=== PATIENT | male | born 1945 | race Caucasian/White ===

== ENCOUNTER 2021-01-25 19:00 | Outpatient (CLI) | payer MEDICARE, BC | END 2021-01-25 19:01 | disposition home or self-care (01) | LOC: SLEEPLAB 19:00 | PROVIDERS: ATTEND Internal Medicine Pulmonary Disease | DX: G47.33 Obstructive sleep apnea (adult) (pediatric) (principal); E11.9 Type 2 diabetes mellitus without complications; G47.61 Periodic limb movement disorder | CPT/HCPCS: 95811 ==

== ENCOUNTER 2021-02-21 10:03 | Outpatient (CLI) | payer BC, MEDICARE | END 2021-02-21 10:04 | disposition home or self-care (01) | LOC: DTY/OP 10:03 | PROVIDERS: ATTEND Family Medicine Sports Medicine | DX: E11.9 Type 2 diabetes mellitus without complications (principal) | CPT/HCPCS: 97802 ==

== ENCOUNTER 2021-11-01 10:56 | Outpatient (CLI) | payer MEDICARE, BC | END 2021-11-01 10:57 | disposition home or self-care (01) | LOC: RAD 10:56 | PROVIDERS: ATTEND Internal Medicine Critical Care Medicine | DX: R06.00 Dyspnea, unspecified (principal); J44.9 Chronic obstructive pulmonary disease, unspecified | CPT/HCPCS: 71046 ==

== ENCOUNTER 2021-11-14 02:16 | Inpatient (IN) | payer OTHER, MEDICARE, BC ==
[2021-11-14] MEDS ORDERED: Vancomycin 1 GM/200 ML BAG ONE (02:47)
[2021-11-14 03:09] LABS: Hemoglobin 15.8 g/dL (14.0-18.0); Mean Corpuscular HGB CONC 34.8 g/dL (32.0-36.0); Platelet Count 186 thou/uL (130-400); Red Blood Cell (RBC) Count 4.79 mill/uL (4.70-6.10); White Blood Cell (WBC) Count 23.1 thou/uL (4.8-10.8)
[2021-11-14 03:17] LABS: Acetaminophen Less than 10.0 mcg/mL (10.0-30.0); Alcohol Less than 10 mg/dL (Less than 10); Salicylate Less than 8.0 mg/dL (15.0-30.0)
[2021-11-14 03:21] LABS: Chloride 95 mmol/L (98-107); Potassium 4.2 mmol/L (3.5-5.1); Sodium 132 mmol/L (136-145)
[2021-11-14 03:22] LABS: Calcium 9.1 mg/dL (7.8-10.44); Glucose 161 mg/dL (83-110)
[2021-11-14 03:23] LABS: Globulin 2.6 g/dL (2.4-3.5); Protein, Total 6.6 g/dL (5.8-8.1)
[2021-11-14 03:24] LABS: Actual Bicarbonate (HCO3v) 25 mEq/L (22-28); Analyzer IN Cardio ER; Base Excess 1.8 mEq/L (-2.0 to +3.0); Calcium, Ionized (venous) 0.95 mmol/L (1.16-1.32); Chloride (VBG) 96 mmol/L (98-106); Hemoglobin (Hb) 16.2 g/dL (12.6-17.4); Potassium (VBG) 3.83 mmol/L (3.70-5.30); Sodium 129.6 mmol/L (133-146); pH (venous) 7.47 (7.32-7.43)
[2021-11-14 03:24] LABS: Bilirubin, Total 1.4 mg/dL (0.2-1.2); Carbon Dioxide 24 mmol/L (23-31)
[2021-11-14 03:25] LABS: Alkaline Phosphatase 66 U/L (40-110)
[2021-11-14 03:26] LABS: Calc. Creatinine Clearance 0 mL/min (70-130)
[2021-11-14 03:27] LABS: BUN (Urea Nitrogen) 14 mg/dL (8.4-25.7)
[2021-11-14 03:28] LABS: ALT (SGPT) 21 U/L (8-55); AST (SGOT) 19 U/L (5-34); Lipase 38 U/L (8-78)
[2021-11-14 03:32] LABS: Anion Gap 17 mmol/L (10-20)
[2021-11-14 03:36] LABS: Band 17 % (5-11); Lymphocytes 8 % (21-51); MDiff Complete? YES; Monocytes 5 % (0-10); Neutrophil 69 % (42-75); Platelet Morphology Comment Appears Adequate; RBC Morphology Normal; Reactive Lymphocytes 1 % (0-10)
[2021-11-14 03:56] LABS: SARS-CoV-2 NAA Rapid Test Not Detected (NotDetected)
[2021-11-14] MEDS ORDERED: Acetaminophen 325 MG TAB PO PRN (04:15)
[2021-11-14] MEDS ORDERED: Ondansetron PF 4 MG/2 ML Vial IVP PRN ×2 (04:15→04:34)
[2021-11-14] MEDS ORDERED: Ondansetron ODT 4 MG TAB SL PRN (04:15)
[2021-11-14 04:34] LABS: Bacteria/HPF None Seen HPF (None Seen); Bilirubin Negative (Negative); Blood, Urine 1+ (Negative); Clarity Clear (Clear); Glucose, Urine (Dipstick) Normal (Negative); Ketone, Urine Negative (Negative); Leukocyte Negative Leu/uL (Negative); Nitrite Negative (Negative); Protein, Urine (Dipstick) Negative (Neg-Trace); Specific Gravity, Urine 1.017 (1.002-1.036); Squamous Epithelial 0-3 HPF (0-3); Urobilinogen Normal mg/dL (Less than 2); WBC/HPF 0-3 HPF (0-3); pH, Urine 7.5 (5.0-9.0)
[2021-11-14] MEDS ORDERED: Dextrose 5% in Water 1,000 ML IV PRN (04:34)
[2021-11-14] MEDS ORDERED: Ondansetron ODT 4 MG TAB PO PRN (04:34)
[2021-11-14] MEDS ORDERED: Dextrose 50% Abboject 50 ML SYRINGE SLOW IVP PRN (04:34)
[2021-11-14] MEDS ORDERED: hydrALAZINE 20 MG/ML VIAL SLOW IVP PRN (04:34)
[2021-11-14] MEDS ORDERED: HumaLOG 300 UNITS/3 ML VIAL SC PRN (04:34)
[2021-11-14 04:39] LABS: Amphetamine Not Detected (NotDetected); Barbiturates Screen Not Detected (NotDetected); Benzodiazepine Screen Not Detected (NotDetected); Cocaine Metabolite Screen Not Detected (NotDetected); Methadone Not Detected (NotDetected); Methamphetamine Not Detected (NotDetected); Opiate Screen Not Detected (NotDetected); Oxycodone Screen Not Detected (NotDetected); Phencyclidine (PCP) Not Detected (NotDetected); THC/Cannabinoid Screen Not Detected (NotDetected); Tricyclic Screen Not Detected (NotDetected)
[2021-11-14 05:37] LABS: Lactic Acid 1.7 mmol/L (0.5-2.2)
[2021-11-14] MEDS: Acetaminophen 500 MG TAB PO PRN ×2 (06:05→12:40)
[2021-11-14] MEDS: Sodium Chloride 0.9% 1,000 ML IV SCH ×3 (06:05→21:13)
[2021-11-14] MEDS: Clindamycin/D5W 900 MG in Premix Bag 1 BAG IVPB SCH ×3 (06:05→21:13)
[2021-11-14] MEDS: Ketorolac Tromethamine 30 MG/ML VIAL IVP SCH ×3 (06:07→17:24)
[2021-11-14] MEDS ORDERED: Vancomycin HCl 1 GM in Sodium Chloride 0.9% 250 ML 300 ML IVPB SCH (09:00)
[2021-11-14] MEDS: Famotidine 20 MG TAB PO SCH ×2 (09:42→21:14)
[2021-11-14] MEDS: Enoxaparin Sodium 40 MG/0.4 ML SYRINGE SC SCH (09:42)
[2021-11-14] MEDS: Vancomycin 1.5 GRAM/300 ML BAG 1.5 GM in Premix Bag 1 BAG IVPB SCH ×2 (10:47→23:26)
[2021-11-14] MEDS: HumaLOG 300 UNITS/3 ML VIAL SC PRN (10:49)
[2021-11-14] MEDS ORDERED: Electrolyte Replacement Protocol 1 EACH FS PRN (11:15)
[2021-11-14 11:58] LABS: Magnesium 1.6 mg/dL (1.6-2.6)
[2021-11-14] MEDS ORDERED: Magnesium Sulfate 4 GM in Sodium Chloride 0.9% 250 ML 250 ML IVPB SCH (12:00)
[2021-11-14] MEDS ORDERED: Magnesium Sulfate In Water 4 GM in Premix Bag 1 BAG IVPB SCH (12:30)
[2021-11-14] MEDS ORDERED: Polyethylene Glycol 3350 17 GM Packet PO PRN (17:52)
[2021-11-14] MEDS: Saccharomyces boulardii 250 MG CAP PO SCH (21:14)
[2021-11-14] MEDS: Atorvastatin Calcium 40 MG TAB PO SCH (21:14)
[2021-11-15] MEDS: Sodium Chloride 0.9% 1,000 ML IV SCH ×3 (03:37→20:42)
[2021-11-15 04:32] LABS: #Eosinphils 0.5 thou/uL (0.0-0.7); #Lymphocytes 0.6 thou/uL (1.20-3.40); #Monocytes 0.7 thou/uL (0.11-0.59); %Basophils 0.2 % (0.0-1.0); %Eosinophils 2.4 % (0.0-10.0); %Monocytes 3.7 % (0.0-10.0); %Neutrophils 90.6 % (42.0-75.0); Hemoglobin 13.4 g/dL (14.0-18.0); Mean Corpuscular Hemoglobin 32.7 pg (27.0-31.0); Mean Corpuscular Volume 96.2 fL (78.0-98.0); Mean Platelet Volume 8.7 fL (7.4-10.4); Platelet Count 151 thou/uL (130-400); Red Blood Cell (RBC) Count 4.11 mill/uL (4.70-6.10); White Blood Cell (WBC) Count 18.7 thou/uL (4.8-10.8)
[2021-11-15 04:52] LABS: ALT (SGPT) 16 U/L (8-55); AST (SGOT) 17 U/L (5-34); Albumin 2.8 g/dL (3.4-4.8); Alkaline Phosphatase 62 U/L (40-110); Anion Gap 10 mmol/L (10-20); BUN (Urea Nitrogen) 19 mg/dL (8.4-25.7); Bilirubin, Total 1.1 mg/dL (0.2-1.2); Calc. Creatinine Clearance 119 mL/min (70-130); Calcium 7.9 mg/dL (7.8-10.44); Carbon Dioxide 25 mmol/L (23-31); Chloride 101 mmol/L (98-107); Globulin 2.2 g/dL (2.4-3.5); Glucose 131 mg/dL (83-110); Magnesium 2.2 mg/dL (1.6-2.6); Sodium 132 mmol/L (136-145)
[2021-11-15] MEDS: Clindamycin/D5W 900 MG in Premix Bag 1 BAG IVPB SCH ×3 (05:34→20:42)
[2021-11-15] MEDS: Enoxaparin Sodium 40 MG/0.4 ML SYRINGE SC SCH (10:20)
[2021-11-15] MEDS: Metoprolol Tartrate 25 MG TAB PO SCH ×2 (10:20→20:42)
[2021-11-15] MEDS: Aspirin 81 mg Enteric Coated Tablet PO SCH (10:20)
[2021-11-15] MEDS: Famotidine 20 MG TAB PO SCH ×2 (10:20→20:42)
[2021-11-15] MEDS: Montelukast Sodium 10 mg Tablet PO SCH (10:21)
[2021-11-15] MEDS: Vancomycin 1.5 GRAM/300 ML BAG 1.5 GM in Premix Bag 1 BAG IVPB SCH (13:38)
[2021-11-15] MEDS: Atorvastatin Calcium 40 MG TAB PO SCH (20:42)
[2021-11-15] MEDS: Saccharomyces boulardii 250 MG CAP PO SCH (20:42)
[2021-11-15] MEDS: Tamsulosin HCl 0.4 MG CAP PO SCH (20:42)
[2021-11-15] MEDS: Acetaminophen 500 MG TAB PO PRN (20:43)
[2021-11-15] MEDS: VANCOMYCIN 1.75 GM/500 ML BAG 1.75 GM in Premix Bag 1 BAG IVPB SCH (23:25)
[2021-11-16] MEDS: Clindamycin/D5W 900 MG in Premix Bag 1 BAG IVPB SCH (05:52)
[2021-11-16 08:21] LABS: #Eosinphils 0.8 thou/uL (0.0-0.7); #Lymphocytes 0.8 thou/uL (1.20-3.40); #Monocytes 0.7 thou/uL (0.11-0.59); #Neutrophils 11.5 thou/uL (1.40-6.50); %Basophils 0.1 % (0.0-1.0); %Eosinophils 5.5 % (0.0-10.0); %Monocytes 5.1 % (0.0-10.0); %Neutrophils 83.4 % (42.0-75.0); Hemoglobin 13.5 g/dL (14.0-18.0); Mean Corpuscular HGB CONC 34.1 g/dL (32.0-36.0); Mean Corpuscular Hemoglobin 32.5 pg (27.0-31.0); Mean Corpuscular Volume 95.4 fL (78.0-98.0); Mean Platelet Volume 8.3 fL (7.4-10.4); Platelet Count 168 thou/uL (130-400); RBC Distribution Width 12.1 % (11.5-14.5); Red Blood Cell (RBC) Count 4.17 mill/uL (4.70-6.10); White Blood Cell (WBC) Count 13.8 thou/uL (4.8-10.8)
[2021-11-16] MEDS: Famotidine 20 MG TAB PO SCH ×2 (09:23→22:24)
[2021-11-16] MEDS: Aspirin 81 mg Enteric Coated Tablet PO SCH (09:23)
[2021-11-16] MEDS: Metoprolol Tartrate 25 MG TAB PO SCH (09:23)
[2021-11-16] MEDS: Montelukast Sodium 10 mg Tablet PO SCH (09:23)
[2021-11-16] MEDS: Enoxaparin Sodium 40 MG/0.4 ML SYRINGE SC SCH (09:24)
[2021-11-16] MEDS: Sodium Chloride 0.9% 1,000 ML IV SCH ×2 (09:24→14:27)
[2021-11-16] MEDS: VANCOMYCIN 1.75 GM/500 ML BAG 1.75 GM in Premix Bag 1 BAG IVPB SCH (10:06)
[2021-11-16] MEDS ORDERED: Lisinopril 5 MG TAB PO SCH (14:15)
[2021-11-16] MEDS ORDERED: AMOXicillin 250 MG CAP PO SCH (15:00)
[2021-11-16] MEDS ORDERED: diphenhydrAMINE 10 MG in Sodium Chloride 0.9% 50 ML IVPB SCH (15:15)
[2021-11-16] MEDS: Tamsulosin HCl 0.4 MG CAP PO SCH (22:24)
[2021-11-16] MEDS: Linezolid 600 MG TAB PO SCH (22:24)
[2021-11-16] MEDS: Atorvastatin Calcium 40 MG TAB PO SCH (22:24)
[2021-11-16] MEDS: Saccharomyces boulardii 250 MG CAP PO SCH (22:25)
[2021-11-17 06:29] LABS: #Basophils 0.1 thou/uL (0.0-0.2); #Eosinphils 0.6 thou/uL (0.0-0.7); #Lymphocytes 0.6 thou/uL (1.20-3.40); #Monocytes 0.7 thou/uL (0.11-0.59); #Neutrophils 10.3 thou/uL (1.40-6.50); %Basophils 0.5 % (0.0-1.0); %Eosinophils 5.1 % (0.0-10.0); %Monocytes 5.5 % (0.0-10.0); Hemoglobin 12.7 g/dL (14.0-18.0); Mean Corpuscular HGB CONC 33.6 g/dL (32.0-36.0); Mean Corpuscular Hemoglobin 32.1 pg (27.0-31.0); Mean Corpuscular Volume 95.4 fL (78.0-98.0); Mean Platelet Volume 8.4 fL (7.4-10.4); Platelet Count 189 thou/uL (130-400); RBC Distribution Width 12.1 % (11.5-14.5); Red Blood Cell (RBC) Count 3.95 mill/uL (4.70-6.10); White Blood Cell (WBC) Count 12.3 thou/uL (4.8-10.8)
[2021-11-17] MEDS: Aspirin 81 mg Enteric Coated Tablet PO SCH (08:57)
[2021-11-17] MEDS: Montelukast Sodium 10 mg Tablet PO SCH (08:58)
[2021-11-17] MEDS: Lisinopril 5 MG TAB PO SCH (08:58)
[2021-11-17] MEDS: Famotidine 20 MG TAB PO SCH ×2 (08:58→21:55)
[2021-11-17] MEDS: Linezolid 600 MG TAB PO SCH ×2 (08:58→21:55)
[2021-11-17] MEDS: Enoxaparin Sodium 40 MG/0.4 ML SYRINGE SC SCH (08:59)
[2021-11-17] MEDS ORDERED: methylPREDNISolone Sod Succ 40 MG VIAL IVP SCH (09:15)
[2021-11-17] MEDS ORDERED: Nystatin 500,000 UNITS/5 ML UDCUP SSW SCH (09:30)
[2021-11-17] MEDS ORDERED: Loratadine 10 MG TAB PO SCH (09:30)
[2021-11-17] MEDS: Sodium Chloride 0.9% 1,000 ML IV SCH (09:59)
[2021-11-17] MEDS: Nystatin 500,000 UNITS/5 ML UDCUP SSW SCH ×3 (12:19→21:55)
[2021-11-17] MEDS: Tamsulosin HCl 0.4 MG CAP PO SCH (21:55)
[2021-11-17] MEDS: Atorvastatin Calcium 40 MG TAB PO SCH (21:55)
[2021-11-17] MEDS: Saccharomyces boulardii 250 MG CAP PO SCH (21:55)
[2021-11-18 06:07] LABS: #Eosinphils 0.1 thou/uL (0.0-0.7); #Monocytes 1.1 thou/uL (0.11-0.59); #Neutrophils 13.8 thou/uL (1.40-6.50); %Basophils 0.1 % (0.0-1.0); %Eosinophils 0.4 % (0.0-10.0); %Lymphocytes 6.4 % (21.0-51.0); %Monocytes 6.9 % (0.0-10.0); %Neutrophils 86.2 % (42.0-75.0); Hemoglobin 11.9 g/dL (14.0-18.0); Mean Corpuscular HGB CONC 33.6 g/dL (32.0-36.0); Mean Corpuscular Hemoglobin 32.2 pg (27.0-31.0); Mean Corpuscular Volume 95.9 fL (78.0-98.0); Platelet Count 221 thou/uL (130-400)
[2021-11-18] MEDS: Linezolid 600 MG TAB PO SCH (09:16)
[2021-11-18] MEDS: Enoxaparin Sodium 40 MG/0.4 ML SYRINGE SC SCH (09:16)
[2021-11-18] MEDS: Nystatin 500,000 UNITS/5 ML UDCUP SSW SCH ×4 (09:16→21:32)
[2021-11-18] MEDS: Sodium Chloride 0.9% 1,000 ML IV SCH (09:16)
[2021-11-18] MEDS: Famotidine 20 MG TAB PO SCH ×2 (09:17→21:26)
[2021-11-18] MEDS: Aspirin 81 mg Enteric Coated Tablet PO SCH (09:17)
[2021-11-18] MEDS: Lisinopril 5 MG TAB PO SCH (09:18)
[2021-11-18] MEDS: Loratadine 10 MG TAB PO SCH (09:18)
[2021-11-18] MEDS: Montelukast Sodium 10 mg Tablet PO SCH (09:23)
[2021-11-18] MEDS ORDERED: methylPREDNISolone Sod Succ 40 MG VIAL IVP SCH (10:45)
[2021-11-18] MEDS ORDERED: diphenhydrAMINE 10 MG in Sodium Chloride 0.9% 50 ML IVPB SCH (12:00)
[2021-11-18] MEDS ORDERED: hydrALAZINE 20 MG/ML VIAL SLOW IVP PRN (15:06)
[2021-11-18] MEDS: HumaLOG 300 UNITS/3 ML VIAL SC PRN (17:51)
[2021-11-18] MEDS: Saccharomyces boulardii 250 MG CAP PO SCH (21:26)
[2021-11-18] MEDS: Tamsulosin HCl 0.4 MG CAP PO SCH (21:26)
[2021-11-18] MEDS: Atorvastatin Calcium 40 MG TAB PO SCH (21:26)
[2021-11-19 05:17] VITALS: BMI 25.5
[2021-11-19 08:26] VITALS: BP 144/71; TEMP 98.1
[2021-11-19 08:26] LABS: #Eosinphils 0.1 thou/uL (0.0-0.7); #Lymphocytes 1.8 thou/uL (1.20-3.40); #Monocytes 1.1 thou/uL (0.11-0.59); #Neutrophils 11.6 thou/uL (1.40-6.50); %Basophils 0.2 % (0.0-1.0); %Eosinophils 0.4 % (0.0-10.0); %Lymphocytes 12.2 % (21.0-51.0); %Monocytes 7.5 % (0.0-10.0); %Neutrophils 79.7 % (42.0-75.0); Hemoglobin 12.6 g/dL (14.0-18.0); Mean Corpuscular Hemoglobin 31.6 pg (27.0-31.0); Mean Corpuscular Volume 95.8 fL (78.0-98.0); Mean Platelet Volume 7.8 fL (7.4-10.4); Platelet Count 245 thou/uL (130-400); RBC Distribution Width 12.1 % (11.5-14.5); Red Blood Cell (RBC) Count 3.98 mill/uL (4.70-6.10); White Blood Cell (WBC) Count 14.6 thou/uL (4.8-10.8)
[2021-11-19] MEDS: Loratadine 10 MG TAB PO SCH (08:59)
[2021-11-19] MEDS: Montelukast Sodium 10 mg Tablet PO SCH (08:59)
[2021-11-19] MEDS: Aspirin 81 mg Enteric Coated Tablet PO SCH (08:59)
[2021-11-19] MEDS: Famotidine 20 MG TAB PO SCH (08:59)
[2021-11-19] MEDS: Nystatin 500,000 UNITS/5 ML UDCUP SSW SCH (08:59)
[2021-11-19] MEDS: Enoxaparin Sodium 40 MG/0.4 ML SYRINGE SC SCH ×2 (08:59→09:02)
[2021-11-19] MEDS ORDERED: Lisinopril 20 MG TAB PO SCH (09:00)
== END 2021-11-19 12:26 | disposition home or self-care (01) | DRG 871 ==
LOC: ERS 02:16 → 2NO 04:03 → T4-A 11-15 21:53
PROVIDERS: ADMIT Family Medicine; ATTEND Internal Medicine
PROC: 3E03329 Introduction of Other Anti-infective into Peripheral Vein, Percutaneous Approach (ICD-10-PCS; principal; 2021-11-14)
PROC: 0T9B70Z Drainage of Bladder with Drainage Device, Via Natural or Artificial Opening (ICD-10-PCS; 2021-11-14)
DX: A40.1 Sepsis due to streptococcus, group B (principal); G92.8 Other toxic encephalopathy; L03.115 Cellulitis of right lower limb; E87.1 Hypo-osmolality and hyponatremia; Z16.20 Resistance to unspecified antibiotic; I10 Essential (primary) hypertension; I25.10 Atherosclerotic heart disease of native coronary artery without angina pectoris; E78.5 Hyperlipidemia, unspecified; R65.20 Severe sepsis without septic shock; E11.65 Type 2 diabetes mellitus with hyperglycemia; R33.9 Retention of urine, unspecified; L53.9 Erythematous condition, unspecified; S10.11XA Abrasion of throat, initial encounter; T36.8X5A Adverse effect of other systemic antibiotics, initial encounter; Y92.239 Unspecified place in hospital as the place of occurrence of the external cause; T81.89XA Other complications of procedures, not elsewhere classified, initial encounter; Y83.8 Other surgical procedures as the cause of abnormal reaction of the patient, or of later complication, without mention of misadventure at the time of the procedure; Z20.822 Contact with and (suspected) exposure to COVID-19; Z95.5 Presence of coronary angioplasty implant and graft; Z88.1 Allergy status to other antibiotic agents; Z88.0 Allergy status to penicillin
CPT/HCPCS: 36415; 36416; 51702; 71045; 78802; 80053; 80202; 80306; 80307; 81003; 81015; 82805; 83605; 83690; 83735; 84484; 85025; 87040; 87077; 87086; 87149; 87186; 93005; 96360; 96361; 96365; A4641; A9521; J1200; J1650; J1815; J1885; J2920; J3370; J3475; J3490; J7050; U0002

== ENCOUNTER 2023-03-10 14:21 | Outpatient (CLI) | payer MEDICARE, BC | END 2023-03-10 14:22 | disposition home or self-care (01) | LOC: RAD 14:21 | PROVIDERS: ATTEND Internal Medicine | DX: R06.00 Dyspnea, unspecified (principal) | CPT/HCPCS: 71046 ==